=== PATIENT | female | born 1985 | race African-American/Black ===

== ENCOUNTER → 2016-10-17 | Outpatient (CLI) | payer OTHER ==
[2016-10-17 18:45] LABS: BASO # 0.2 K/mm3 (0.0-0.2); BASO % 2.7 % (0.0-1.0); EOS % 0.6 % (0.0-3.0); LARGE UNSTAINED CELL # 0.1 K/mm3 (0.0-0.4); LARGE UNSTAINED CELL % 1.5 % (0.0-4.0); LYMPH # 2.1 K/mm3 (1.5-6.5); LYMPH % 29.6 % (24.0-44.0); MEAN CORPUSCULAR HEMOGLOBIN 27.8 pg (27.0-33.0); MEAN CORPUSCULAR HGB CONC 35.5 g/dl (32.0-36.5); MEAN CORPUSCULAR VOLUME 78.2 fl (80.0-96.0); MONO # 0.3 K/mm3 (0.0-0.8); MONO % 4.3 % (0.0-5.0); NEUTROPHILS # 4.1 K/mm3 (1.8-7.7); NEUTROPHILS % 61.2 % (36.0-66.0); PLATELET COUNT, AUTOMATED 268 k/mm3 (150-450); RED CELL DISTRIBUTION WIDTH 15.5 % (11.5-14.5); WHITE BLOOD COUNT 6.6 K/mm3 (4.0-10.0)
[2016-10-18 09:22] LABS: HIV SCRN NEGATIVE (NEGATIVE); HIV SCRN1 NEGATIVE (NEGATIVE)
[2016-10-18 09:29] LABS: CONTROL LINE INT CTR LINE PRESENT
[2016-10-18 09:56] LABS: HBsAg Prenatal NEGATIVE (NEGATIVE)
== END | disposition home or self-care (01) ==
LOC: M WUC 15:01
PROVIDERS: ATTEND Advanced Practice Midwife
DX: Z34.01 Encounter for supervision of normal first pregnancy, first trimester (principal); Z36 Encounter for antenatal screening of mother; Z3A.00 Weeks of gestation of pregnancy not specified

== ENCOUNTER → 2016-11-10 | Outpatient (CLI) | payer OTHER ==
[2016-11-10 20:06] LABS: BASO % 0.3 % (0.0-1.0); EOS # 0.1 K/mm3 (0.0-0.50); EOS % 1.1 % (0.0-3.0); LARGE UNSTAINED CELL % 0.5 % (0.0-4.0); LYMPH # 1.5 K/mm3 (1.5-6.5); LYMPH % 23.5 % (24.0-44.0); MEAN CORPUSCULAR HGB CONC 35.4 g/dl (32.0-36.5); MEAN CORPUSCULAR VOLUME 79.1 fl (80.0-96.0); MONO # 0.3 K/mm3 (0.0-0.8); MONO % 5.1 % (0.0-5.0); NEUTROPHILS # 4.4 K/mm3 (1.8-7.7); NEUTROPHILS % 69.5 % (36.0-66.0); PLATELET COUNT, AUTOMATED 263 k/mm3 (150-450); RED CELL DISTRIBUTION WIDTH 15.3 % (11.5-14.5); WHITE BLOOD COUNT 6.3 K/mm3 (4.0-10.0)
== END ==
LOC: M WUC 14:08
PROVIDERS: ATTEND Obstetrics & Gynecology
DX: Z34.02 Encounter for supervision of normal first pregnancy, second trimester (principal); Z36 Encounter for antenatal screening of mother; Z3A.00 Weeks of gestation of pregnancy not specified

== ENCOUNTER → 2016-12-12 | Outpatient (CLI) | payer OTHER ==
--- NOTE | 2016-12-12 15:35 | REP ---
Clinical: Anatomical evaluation. Comparison: 09/13/2016 . Findings: Examination demonstrates a single live intrauterine in breech presentation. motion is identified by technologist. Placenta is noted posteriorly and grade zero without evidence for placenta previa or abruption. Amniotic fluid volume is normal. Cervix measures 3.6 cm in length and appears closed. No evidence for nuchal cord. Gestational age by LMP 20 weeks 5 days with MANUEL 04/26/2017 . Gestational age by current measurements 19 weeks 5 days with MANUEL 05/03/2017 . FHR equals 153 beats per minute. BPD 4.4 cm 19 weeks 2 days HC 16.7 cm 19 weeks 2 days AC 15.6 cm 20 weeks 5 days FL 3.3 cm 20 weeks 3 days HL 3.0 cm 20 weeks 0 days HC/AC ratio 1.07 Estimated weight 354 grams ( 38th percentile). Anatomical assessment demonstrates normal structures including cranium, choroid plexus, cavum, cerebellum/posterior fossa, facial features, lungs, four-chamber heart/ left ventricular outflow tract, diaphragm, stomach, cord insertion/three-vessel cord, kidneys/bladder, spine, and extremities. Impression: 1. Single live intrauterine in breech presentation demonstrating appropriate oval growth. 2. Right cardiac ventricular outflow tract not visualized. Remainder of the anatomical assessment is complete and normal. Signed by Dale Griggs MD 12/12/2016 03:25 P
== END ==
LOC: M SMT 13:52
PROVIDERS: ATTEND Obstetrics & Gynecology
DX: O32.1XX0 Maternal care for breech presentation, not applicable or unspecified (principal); Z36 Encounter for antenatal screening of mother; Z3A.20 20 weeks gestation of pregnancy

== ENCOUNTER → 2017-01-02 | Outpatient (CLI) | payer OTHER ==
--- NOTE | 2017-01-02 10:51 | REP ---
OB ULTRASOUND: Real-time sonographic evaluation of the gravid uterus performed. There is a single intrauterine gestation with an estimated gestational age 23 weeks 5 days with EDC 04/26/2017. Today's measurements indicate appropriate growth. Biometry and Growth: BPD 56 mm = 23 weeks 0 days, 30th percentile HC 213 mm = 23 weeks 2 days, 38th percentile AC 177 mm = 22 weeks 4 days, 27th percentile FL 40 mm = 22 weeks 6 days, 28th percentile HC/AC ratio 1.20 within normal range. Estimated weight 534 grams 19th percentile. SEEN/GROSSLY UNREMARKABLE Lateral ventricles Yes Posterior fossa Yes Upper lip Yes Four-chamber heart No LVOT Yes RVOT Yes Stomach Yes Cord insertion Yes Three vessel cord Yes Kidneys Yes Bladder Yes Spine Yes Cervical length: Closed and measures 3.0 cm in length. heart rate: 145 beats per minute. position: Vertex. Placenta: Posterior and grade 0 with no previa or abruption. Amniotic fluid: Within normal limits. Signed by Anthony Rao MD 01/02/2017 04:22 P
== END ==
LOC: M RAD 09:11
PROVIDERS: ATTEND Obstetrics & Gynecology
DX: Z34.82 Encounter for supervision of other normal pregnancy, second trimester (principal); Z36 Encounter for antenatal screening of mother; Z3A.23 23 weeks gestation of pregnancy

== ENCOUNTER → 2017-01-24 | Outpatient (CLI) | payer OTHER ==
[2017-01-24 17:07] LABS: MEAN CORPUSCULAR HEMOGLOBIN 30.1 pg (27.0-33.0); MEAN CORPUSCULAR HGB CONC 35.1 g/dl (32.0-36.5); RED CELL DISTRIBUTION WIDTH 14.7 % (11.5-14.5); WHITE BLOOD COUNT 8.9 K/mm3 (4.0-10.0)
== END ==
LOC: M WUC 13:02
PROVIDERS: ATTEND Obstetrics & Gynecology
DX: Z34.82 Encounter for supervision of other normal pregnancy, second trimester (principal); Z36 Encounter for antenatal screening of mother; Z3A.00 Weeks of gestation of pregnancy not specified

== ENCOUNTER 2017-02-11 11:22 | Outpatient (CLI) | payer OTHER ==
[~2017-02-11] VITALS: Ht 165.1 cm; Wt 66.0 kg
[2017-02-11] MEDS ORDERED: PRENTAB9 PO (11:38)
[2017-02-11] MEDS ORDERED: IRON65TA PO (11:38)
[2017-02-11 11:40] VITALS: BP 110/74
== END 2017-02-11 12:35 | disposition home or self-care (01) ==
LOC: M LDO 11:22
PROVIDERS: ATTEND Advanced Practice Midwife
DX: O99.89 Other specified diseases and conditions complicating pregnancy, childbirth and the puerperium (principal); R10.2 Pelvic and perineal pain; Z3A.29 29 weeks gestation of pregnancy

== ENCOUNTER → 2017-04-09 | Outpatient (REF) | payer OTHER ==
[~2017-04-09] MED LIST: ACET50TA PO; ACET50TAOT PO; COLA100C5 PO; IBUP-1114 PO; IBUP1TAB7 PO; IBUP80TA PO; IRON65TA PO; MOM30SS PO; NUPE1OIN2 TOP; OXYC1TAB23 PO; PERC10TA26 PO; PERCOCET PO; PRENTAB9 PO
== END ==
LOC: M LAB REF 17:33
PROVIDERS: ATTEND Advanced Practice Midwife
DX: Z34.03 Encounter for supervision of normal first pregnancy, third trimester (principal); Z36 Encounter for antenatal screening of mother; Z3A.00 Weeks of gestation of pregnancy not specified

== ENCOUNTER 2017-04-30 05:21 | Outpatient (CLI) | payer OTHER ==
[~2017-04-30] VITALS: Ht 170.2 cm; Wt 71.0 kg
[~2017-04-30 05:21] MED LIST changes: -ACET50TA PO; -ACET50TAOT PO; -COLA100C5 PO; -IBUP-1114 PO; -IBUP1TAB7 PO; -IBUP80TA PO; -MOM30SS PO; -NUPE1OIN2 TOP; -OXYC1TAB23 PO; -PERC10TA26 PO; -PERCOCET PO
[2017-04-30 05:30] VITALS: BP 111/78
[2017-04-30] MEDS ORDERED: LR 1,000 ML IV ONE (06:45)
[2017-04-30 07:26] VITALS: BP 126/82
[2017-04-30 09:37] VITALS: BP 105/69
[2017-04-30 10:42] VITALS: BP 126/80
== END 2017-04-30 10:55 | disposition home or self-care (01) ==
LOC: M LDO 05:21
PROVIDERS: ATTEND Obstetrics & Gynecology
DX: O47.1 False labor at or after 37 completed weeks of gestation (principal); N89.8 Other specified noninflammatory disorders of vagina; Z3A.38 38 weeks gestation of pregnancy; O26.893 Other specified pregnancy related conditions, third trimester

== ENCOUNTER 2017-05-02 05:28 | Inpatient (IN) | payer OTHER ==
[2017-05-02] VITALS (55 sets, daily range): BP systolic 89–130; BP diastolic 50–85
[~2017-05-02] VITALS: Ht 154.9 cm; Wt 75.0 kg
[2017-05-02 06:22] LABS: MEAN CORPUSCULAR HEMOGLOBIN 31.3 pg (27.0-33.0); MEAN CORPUSCULAR VOLUME 84.8 fl (80.0-96.0); RED CELL DISTRIBUTION WIDTH 14.3 % (11.5-14.5); WHITE BLOOD COUNT 8.6 K/mm3 (4.0-10.0)
[2017-05-02] MEDS ORDERED: FENTANYL 2MCG/ML ROPIVACAINE 0.2% IN 0.9% NACL 200ML IVBAG As Ordered ONE (06:22)
[2017-05-02 06:24] LABS: MEAN CORPUSCULAR HGB CONC 36.2 g/dl (32.0-36.5)
[2017-05-02] MEDS ORDERED: REFRIGERATOR IV KEYS XX PRN (07:15)
[2017-05-02] MEDS ORDERED: LACTATED RINGER'S 1000 ML IV PRN (07:15)
[2017-05-02] MEDS ORDERED: EPIDURAL/PCA KEYS XX PRN (07:15)
[2017-05-02] MEDS ORDERED: ONDANSETRON 4MG/2ML VIAL (J2405) IV PRN ×2 (07:15→19:45)
[2017-05-02] MEDS ORDERED: diphenhydrAMINE INJ 50MG/ML VIAL (J1200) IV PRN (07:15)
[2017-05-02] MEDS ORDERED: FENTANYL/ROPIVACAINE/NACL BAG 200 ML EPIDURAL SCH (07:15)
[2017-05-02] MEDS ORDERED: EPIDURAL COMMENT XX SCH (07:15)
[2017-05-02] MEDS ORDERED: NALOXONE INJ 0.4 MG/1 ML VIAL (J2310) IV PRN (07:15)
[2017-05-02] MEDS: ePHEDrine SULFATE 25 MG/5 ML(5MG/ML) SYRINGE IV PRN ×3 (08:10→08:19)
[2017-05-02] MEDS ORDERED: OXYTOCIN 30 UNITS IN 0.9% NaCl 500ML IV BAG (J2590) As Ordered ONE (09:57)
[2017-05-02] MEDS ORDERED: LR 1,000 ML IV SCH ×2 (09:57→19:45)
[2017-05-02] MEDS ORDERED: OXYTOCIN DRIP 30 UNITS in APPROPRIATE DILUENT 1 EA IV SCH ×3 (10:48→14:00)
[2017-05-02] MEDS ORDERED: DIBUCAINE 1% OINTMENT 30GM TOP PRN (11:00)
[2017-05-02] MEDS ORDERED: MOM 30ML SUSPENSION UDC PO PRN (11:00)
[2017-05-02] MEDS ORDERED: RHOGAM 300 MCG (1500 IU) INJ (J2790) IM SCH (11:00)
[2017-05-02] MEDS ORDERED: METHYLERGONOVINE MALEATE 0.2 MG TAB PO PRN (11:00)
[2017-05-02] MEDS ORDERED: DOCUSATE SODIUM 100 MG CAP PO PRN (11:00)
[2017-05-02] MEDS ORDERED: ACETAMINOPHEN 500 MG TAB PO PRN (11:00)
[2017-05-02] MEDS ORDERED: MEASLES,MUMPS,RUBELLA VACCINE INJ (MMR-II) (90707) SC SCH (11:00)
[2017-05-02] MEDS ORDERED: ANUSOL HC CREAM 30GM TOP PRN (11:00)
[2017-05-02] MEDS ORDERED: METHYLERGONOVINE MALEATE 0.2 MG/ML VIAL (J2210) IM STA (12:34)
[2017-05-02] MEDS ORDERED: miSOPROStol 200 MCG TAB (S0191) PR ONE (13:00)
[2017-05-02] MEDS ORDERED: KETOROLAC 30 MG/ML VIAL (J1885) As Ordered ONE (13:37)
[2017-05-02] MEDS: KETOROLAC 30 MG/ML VIAL (J1885) IV SCH (13:57)
[2017-05-02] MEDS ORDERED: METHYLERGONOVINE MALEATE 0.2 MG TAB PO SCH (14:00)
[2017-05-02] MEDS ORDERED: PERCOCET 5MG/325MG TAB PO ONE (14:15)
--- NOTE | 2017-05-02 14:25 | DN ---
DATE OF DELIVERY: 05/02/2017 TIME OF DELIVERY: 10:30 a.m. GENDER: Female. SCORES: 9 and 9. WEIGHT: 3105 grams, or 6 pounds 13 ounces. ESTIMATED BLOOD LOSS: 300 mL. ANESTHESIA: Epidural. LACERATIONS: First degree midline laceration. COUNTS: 5 laparotomy sponges accounted for prior to and after delivery. One sharp removed from the delivery field. DELIVERY NOTE: On the April at 10:30 a.m., this patient a 32-year-old 1 now para 1 had a spontaneous vaginal delivery of a liveborn female infant with scores of 9 and 9. Weight was 3105 grams or 6 pounds 13 ounces. Head was delivered OA followed by delivery of right anterior shoulder, left posterior shoulder and corpus. The was then handed to mom with a good cry. The cord was clamped times two and was cut by the father of the baby under my direction. Cord blood was obtained. Placenta was then drained and delivered grossly intact. A premixed bag of 500 mL of normal saline with 30 units of pitocin was then bolused along with uterine massage until the uterus was firm. On inspection there was a first degree midline laceration, which was repaired with #3-0 Vicryl Rapide. On reinspection of the cervix, vagina and perineum was grossly intact and hemostatic. Mom and baby were recovering in stable condition.
[2017-05-02 14:29] LABS: MEAN CORPUSCULAR HEMOGLOBIN 31.1 pg (27.0-33.0); MEAN CORPUSCULAR VOLUME 84.4 fl (80.0-96.0); RED CELL DISTRIBUTION WIDTH 14.1 % (11.5-14.5); WHITE BLOOD COUNT 13.4 K/mm3 (4.0-10.0)
[2017-05-02] MEDS ORDERED: MORPHINE 2 MG/ML 1ML SYRINGE IV ONE (14:30)
--- NOTE | 2017-05-02 14:30 | HPE ---
DATE OF ADMISSION: 05/02/2017 REASON FOR ADMISSION: Labor. HISTORY OF PRESENT ILLNESS: This patient is a 32-year-old 1, who presents at 39 weeks 6 days estimated gestational age via first trimester ultrasound with complaints of contractions. She reports active movement. She denies any vaginal bleeding or leakage of fluid. Her course has been unremarkable. She initiated care in the first trimester and has been appropriate throughout. PAST MEDICAL HISTORY: None. PAST SURGICAL HISTORY: None. PAST OBSTETRICAL HISTORY: She is 1. MEDICATIONS: - iron - Colace - vitamins ALLERGIES: She has no known drug allergies. SOCIAL HISTORY: She denies any alcohol, tobacco or drug use during the . PHYSICAL EXAMINATION: VITAL SIGNS: Stable. She is afebrile. She has a category 1 heart rate tracing with contractions on tocodynamometer. GENERAL APPEARANCE: Well appearing. No acute distress. LUNGS: Clear to auscultation bilaterally. CARDIOVASCULAR: Heart has regular rate and rhythm. ABDOMEN: Gravid, nontender. CERVICAL EXAM: She is 8 cm dilated, 90% effaced, -1 station. LABORATORY DATA: Blood type is AB positive, antibody screen is negative, Rubella is immune, RPR is nonreactive, hepatitis surface antigen is negative. HIV is negative. Hepatitis C nonreactive. Chlamydia and Gonorrhea negative. She had a normal one hour Glucola and GBS is negative. ASSESSMENT: 1. This patient is a 32-year-old 1 at 39 weeks 6 days estimated gestational age here in active labor. 2. Reassuring status. PLAN: 1. Admit to labor and delivery. CBC, RPR, type and screen. 2. The patient is a good candidate fro epidural. 3. Anticipate spontaneous vaginal delivery.
[2017-05-02 14:31] LABS: MEAN CORPUSCULAR HGB CONC 36.8 g/dl (32.0-36.5)
[2017-05-02] MEDS ORDERED: MORPHINE 10 MG/ML 1ML VIAL IV ONE (17:00)
[2017-05-02 17:30] LABS: MEAN CORPUSCULAR HEMOGLOBIN 31.8 pg (27.0-33.0); MEAN CORPUSCULAR VOLUME 85.1 fl (80.0-96.0); RED CELL DISTRIBUTION WIDTH 13.9 % (11.5-14.5); WHITE BLOOD COUNT 13.7 K/mm3 (4.0-10.0)
[2017-05-02 17:43] LABS: MEAN CORPUSCULAR HGB CONC 37.4 g/dl (32.0-36.5)
[2017-05-02] MEDS ORDERED: SUCCINYLCHOLINE 100 MG/5 ML SYRINGE (J0330) As Ordered ONE (17:50)
[2017-05-02] MEDS ORDERED: PROPOFOL 200 MG/20 ML VIAL As Ordered ONE (17:50)
[2017-05-02] MEDS ORDERED: ONDANSETRON 4MG/2ML VIAL (J2405) As Ordered ONE ×2 (17:50→19:01)
[2017-05-02] MEDS ORDERED: ROCURONIUM BROMIDE 50 MG/5 ML VIAL/SYRINGE As Ordered ONE (17:50)
[2017-05-02] MEDS ORDERED: fentaNYL 100 MCG/2 ML INJECTION (J3010) As Ordered ONE ×2 (17:50→18:49)
[2017-05-02] MEDS ORDERED: ceFAZolin 2 GM/D5W 50 ML IV BAG (J0690) As Ordered ONE (17:52)
--- NOTE | 2017-05-02 18:05 | REP ---
HISTORY: Status post vaginal delivery. The patient has severe pain. COMPARISON: None. There is mixed echogenic material seen in the pelvis consistent with heme products. The uterus is enlarged secondary to the state measuring 23 x 7 x 10 cm. There is thickening and heterogeneity of the endometrial echo complex likely secondary to the state. This needs followup. Only the right ovary was visualized and was seen to measure 3.7 x 2.6 x 2.5 cm and was within normal limits. IMPRESSION: 1. Uterine enlargement consistent with a state. 2. Endometrial echo complex as described above. 3. There is evidence of heme products within the pelvis. This needs to be correlated clinically with appropriate followup. Signed by Eliseo Foote DO 05/02/2017 06:58 P
[2017-05-02] MEDS ORDERED: MIDAZOLAM INJ 2 MG/2 ML VIAL (J2250) As Ordered ONE (18:09)
--- NOTE | 2017-05-02 18:19 | REP ---
REASON FOR EXAM: Right upper quadrant pain. COMPARISON EXAM: None. Multiple ultrasonographic images of the liver show the hepatic parenchymal echo pattern to be normal. There is no intrahepatic or extrahepatic ductal dilatation. The common bile duct measures 3 mm. Multiple ultrasonographic images of the gallbladder show tiny echogenic foci adherent to the gallbladder wall. The largest of which measures 2 mm non-casting comet tail artifact or acoustic shadowing. There are no choleliths. There is no pericholecystic edema. The imaged portion of the pancreas shows no evidence of gross abnormality. The spleen has a maximal dimension of 9 cm and is normal. The right kidney measures 10.2 x 4.4 x 3.6 cm and is normal. The left kidney measures 9.7 x 4.4 x 5 cm and is normal. There is no edna ascites. There is a trace amount of free fluid adjacent to the spleen. IMPRESSION: 1. Tiny gallbladder polyps are suspected. Three month followup is suggested. 2. There is a tiny amount of fluid in the left upper quadrant of uncertain significance. This should be correlated clinically with appropriate followup. Signed by Eliseo Foote DO 05/02/2017 06:59 P
[2017-05-02] MEDS ORDERED: ePHEDrine SULFATE 25 MG/5 ML(5MG/ML) SYRINGE As Ordered ONE (18:59)
[2017-05-02] MEDS ORDERED: PHENYLEPHRINE INJ 10MG/ML VIAL (J2370) As Ordered ONE (18:59)
[2017-05-02] MEDS ORDERED: GLYCOPYRROLATE INJ 0.2 MG/ML 2 ML VIAL As Ordered ONE (19:01)
[2017-05-02] MEDS ORDERED: NEOSTIGMINE 1MG/ML 5 ML SYRINGE (J2710) As Ordered ONE (19:01)
[2017-05-02] MEDS ORDERED: PERCOCET 5MG/325MG TAB PO PRN ×2 (19:30→19:45)
[2017-05-02] MEDS ORDERED: fentaNYL 100 MCG/2 ML INJECTION (J3010) IV PRN (19:45)
[2017-05-02] MEDS ORDERED: HYDROmorphone HCL 1 MG/ML SYRINGE (J1170) IV PRN (19:45)
[2017-05-02] MEDS: AMPICILLIN SOD/SULBACTAM SOD 3 GM in D5W MINI-BAG PLUS 100 ML IV SCH (20:34)
[2017-05-02 22:09] LABS: MEAN CORPUSCULAR HEMOGLOBIN 30.7 pg (27.0-33.0); MEAN CORPUSCULAR HGB CONC 36.2 g/dl (32.0-36.5); MEAN CORPUSCULAR VOLUME 84.8 fl (80.0-96.0); RED CELL DISTRIBUTION WIDTH 13.8 % (11.5-14.5); WHITE BLOOD COUNT 14.9 K/mm3 (4.0-10.0)
[2017-05-03] MEDS: KETOROLAC 30 MG/ML VIAL (J1885) IV SCH (01:26)
[2017-05-03 02:35] VITALS: BP 101/57
[2017-05-03] MEDS: AMPICILLIN SOD/SULBACTAM SOD 3 GM in D5W MINI-BAG PLUS 100 ML IV SCH (02:58)
[2017-05-03] MEDS: LR 1,000 ML IV SCH ×4 (02:58→19:29)
[2017-05-03] MEDS: PERCOCET 5MG/325MG TAB PO PRN (05:39)
[2017-05-03 05:53] VITALS: BP 99/59
[2017-05-03 07:03] LABS: MEAN CORPUSCULAR HEMOGLOBIN 30.9 pg (27.0-33.0); MEAN CORPUSCULAR HGB CONC 36.5 g/dl (32.0-36.5); MEAN CORPUSCULAR VOLUME 84.7 fl (80.0-96.0); RED CELL DISTRIBUTION WIDTH 13.9 % (11.5-14.5); WHITE BLOOD COUNT 9.1 K/mm3 (4.0-10.0)
[2017-05-03] MEDS: PRENATAL VITAMINS CHEWABLE TABLET PO SCH (08:24)
[2017-05-03 10:08] VITALS: BP 111/63
--- NOTE | 2017-05-03 12:34 | RO ---
DATE OF PROCEDURE: 05/02/2017 PREPROCEDURE DIAGNOSIS: Right vaginal wall hematoma. POSTPROCEDURE DIAGNOSIS: Right vaginal wall hematoma. PROCEDURE PERFORMED: Evacuation of a right vaginal wall hematoma. SURGEON: Lona Browne MD TECHNICAL DIRECTOR: Chapo Kathleen MD ANESTHESIA: General endotracheal anesthesia. ESTIMATED BLOOD LOSS: Was approximately 1 liter of clotted blood was evacuated from the vaginal wall hematoma. FLUIDS: The patient received 2 units of packed red blood cells and 1200 mL of lactated Ringer solution. SPECIMENS: None. PREOPERATIVE ANTIBIOTICS: 2 grams of Ancef. INDICATION FOR OPERATION: Mrs. James is a 32-year-old 1, para 1, who had delivered earlier that day at approximately 10:30 a.m. This delivery was uncomplicated. She sustained a 1st-degree laceration and initially did well . Her course was remarkable for a large amount of bleeding approximately 2 hours after delivery. The patient was given initially uterine tonics for treatment of uterine atony. Her bleeding ceased, and she remained stable. Complete blood count (CBC) was obtained, which showed a hematocrit of 31, previously 35. Her vital signs during this time remained stable. She had remained afebrile. Approximately 3 hours after delivery, she started to report pelvic pain. Initially, this pain was believed to be secondary to uterine contractions in light of the amount of uterine tonic she received for uterine atony. This pain continued to progress. She described this pelvic pain flanking and eventually started to complain of rectal discomfort. On examination, she was noted to have a large right-side hematoma, approximately 6-7 cm in size. The patient was consented for evacuation of the right wall hematoma. DESCRIPTION OF OPERATION: After informed consent was obtained and written consent was reviewed, the patient was brought to the operating room, where general endotracheal anesthesia was obtained. She was then prepped and draped in the normal sterile fashion. A time-out out in the operating room was then performed identifying the patient, the procedure to be performed, as well as drug allergies. A Breisky retractor was then placed in the vagina, revealing the vaginal hematoma. This area was then opened, and drainage of approximately 1 liter clot was then removed from paravaginal space. The opening was then oversewn with 0 Vicryl repair. The 1st-degree laceration was also repaired. The vagina was then packed using a vaginal packing. The patient was then taken out of the lithotomy position, was awakened from general anesthesia, and taken to recovery in stable condition. Counts were correct. MTDD
[2017-05-03 14:15] VITALS: BP 100/62
[2017-05-03 18:25] VITALS: BP 117/51
[2017-05-03 22:07] VITALS: BP 107/62
[2017-05-04] MEDS: LR 1,000 ML IV SCH ×5 (03:29→21:00)
[2017-05-04] MEDS: IBUPROFEN 800 MG TAB PO PRN ×2 (03:43→12:49)
[2017-05-04 06:03] VITALS: BP 106/59
[2017-05-04] MEDS: PRENATAL VITAMINS CHEWABLE TABLET PO SCH ×2 (09:00→09:28)
[2017-05-04] MEDS ORDERED: MOM30SS PO (10:16)
[2017-05-04] MEDS ORDERED: ACET50TA PO (10:16)
[2017-05-04] MEDS ORDERED: IBUP-1114 PO (10:16)
[2017-05-04] MEDS ORDERED: OXYC1TAB23 PO (10:16)
[2017-05-04] MEDS ORDERED: NUPE1OIN2 TOP (10:16)
[2017-05-04] MEDS ORDERED: COLA100C5 PO (10:16)
[2017-05-04 12:55] VITALS: BP 111/71
[2017-05-04] MEDS ORDERED: LACTATED RINGER'S 1000 ML IV ONE (13:00)
[2017-05-04 14:15] LABS: BASO % 0.2 % (0.0-1.0); EOS # 0.1 K/mm3 (0.0-0.50); EOS % 0.6 % (0.0-3.0); LARGE UNSTAINED CELL # 0.1 K/mm3 (0.0-0.4); LARGE UNSTAINED CELL % 0.6 % (0.0-4.0); LYMPH # 1.8 K/mm3 (1.5-4.5); LYMPH % 14.6 % (24.0-44.0); MEAN CORPUSCULAR HEMOGLOBIN 30.7 pg (27.0-33.0); MEAN CORPUSCULAR HGB CONC 35.4 g/dl (32.0-36.5); MEAN CORPUSCULAR VOLUME 86.7 fl (80.0-96.0); MONO # 0.4 K/mm3 (0.0-0.8); MONO % 3.5 % (0.0-5.0); NEUTROPHILS # 9.3 K/mm3 (1.8-7.7); NEUTROPHILS % 80.6 % (36.0-66.0); PLATELET COUNT, AUTOMATED 182 k/mm3 (150-450); RED CELL DISTRIBUTION WIDTH 14.3 % (11.5-14.5); WHITE BLOOD COUNT 11.6 K/mm3 (4.0-10.0)
[2017-05-04] MEDS: PERCOCET 5MG/325MG TAB PO PRN (16:01)
[2017-05-04 17:58] VITALS: BP 122/60
[2017-05-05 02:20] VITALS: BP 110/67
[2017-05-05 04:01] LABS: MEAN CORPUSCULAR HGB CONC 34.7 g/dl (32.0-36.5); MEAN CORPUSCULAR VOLUME 86.6 fl (80.0-96.0); RED CELL DISTRIBUTION WIDTH 14.5 % (11.5-14.5); WHITE BLOOD COUNT 10.4 K/mm3 (4.0-10.0)
[2017-05-05 06:00] VITALS: BP 120/79
[2017-05-05] MEDS: PRENATAL VITAMINS CHEWABLE TABLET PO SCH (08:41)
[2017-05-05] MEDS: PERCOCET 5MG/325MG TAB PO PRN (08:44)
[2017-05-05] MEDS ORDERED: IBUP1TAB7 PO (13:28)
[2017-05-05] MEDS ORDERED: PERCOCET PO (13:30)
--- NOTE | 2017-05-09 11:51 | DSES ---
DATE OF ADMISSION: 05/02/2017 DATE OF DISCHARGE: 05/05/2017 DISCHARGE DIAGNOSES: 1. Spontaneous vaginal delivery. 2. Vaginal wall hematoma. 3. hemorrhage. PROCEDURES PERFORMED WHILE IN THE HOSPITAL: 1. Epidural. 2. Repair of vaginal laceration. 3. Evacuation of vaginal wall hematoma. 4. She received a total of 4 units of red packed blood cells. HISTORY AND HOSPITAL COURSE: Ms. James is a 32-year-old 1, who presented in active labor. She had a vaginal delivery that was productive of a liveborn female infant. She had sustained a 1st-degree laceration, which was repaired. Several hours after her vaginal delivery, she had a large amount of blood, and it was initially treated with uterine tonics for uterine atony. Her bleeding had remained stable, and then she started to report severe pain; and on her examination, it was noted that she had a large right-side vaginal hematoma. She underwent a surgical evacuation of the hematoma, as well as receiving a total of 4 units of packed red blood cells. She did well postoperatively. By postoperative day #3, had met all discharge criteria, so was discharged home in stable condition. Her physical examination on day of discharge, her vital signs were stable. She was afebrile. Her abdomen was soft, nontender. The fundus was firm, below umbilicus. Extremities negative for calf tenderness. Her discharge medication: - ibuprofen - Percocet DISCHARGE INSTRUCTIONS: She was instructed to followup in 2 weeks. To report severe pain, heavy vaginal bleeding, or fever. To remain on pelvic rest. GREY
== END 2017-05-05 15:45 | disposition home or self-care (01) | DRG 774 ==
LOC: M LDO 05:28 → M LDI 05:34 → M OBS 19:17
PROVIDERS: ADMIT Obstetrics & Gynecology; ATTEND Obstetrics & Gynecology
PROC: 0HQ9XZZ Repair Perineum Skin, External Approach (ICD-10-PCS; 2017-05-02)
PROC: 30253N1 (ICD-10-PCS; 2017-05-02)
PROC: 0UCG7ZZ Extirpation of Matter from Vagina, Via Natural or Artificial Opening (ICD-10-PCS; 2017-05-02)
PROC: 10E0XZZ Delivery of Products of Conception, External Approach (ICD-10-PCS; principal; 2017-05-02 17:14)
DX: O70.0 First degree perineal laceration during delivery (principal); O72.1 Other immediate postpartum hemorrhage; O71.7 Obstetric hematoma of pelvis; Z37.0 Single live birth; Z3A.39 39 weeks gestation of pregnancy

== ENCOUNTER 2017-05-18 05:59 | Inpatient (IN) | payer OTHER ==
[~2017-05-18] VITALS: Ht 170.2 cm; Wt 67.5 kg
[2017-05-18] MEDS: LR 1,000 ML IV SCH ×2 (01:00→17:17)
[~2017-05-18 05:59] MED LIST changes: +ACET50TA PO; +COLA100C5 PO; +IBUP-1114 PO; +IBUP1TAB7 PO; +MOM30SS PO; +NUPE1OIN2 TOP; +OXYC1TAB23 PO; +PERCOCET PO
[2017-05-18] MEDS ORDERED: NS 1,000 ML IV ONE ×2 (06:45→14:30)
[2017-05-18] MEDS ORDERED: ACETAMINOPHEN TAB 650MG DOSE (2X325MG) PO ONE ×2 (06:45→12:30)
[2017-05-18 07:05] LABS: BASO % 0.1 % (0.0-1.0); EOS % 0.3 % (0.0-3.0); LARGE UNSTAINED CELL # 0.1 K/mm3 (0.0-0.4); LARGE UNSTAINED CELL % 0.6 % (0.0-4.0); LYMPH # 0.5 K/mm3 (1.5-4.5); MEAN CORPUSCULAR HEMOGLOBIN 29.6 pg (27.0-33.0); MEAN CORPUSCULAR HGB CONC 35.1 g/dl (32.0-36.5); MEAN CORPUSCULAR VOLUME 84.4 fl (80.0-96.0); MONO # 0.3 K/mm3 (0.0-0.8); NEUTROPHILS # 8.5 K/mm3 (1.8-7.7); PLATELET COUNT, AUTOMATED 304 k/mm3 (150-450); RED CELL DISTRIBUTION WIDTH 14.4 % (11.5-14.5); WHITE BLOOD COUNT 9.4 K/mm3 (4.0-10.0)
[2017-05-18 07:19] LABS: ALBUMIN 2.8 GM/DL (3.2-5.2); ALBUMIN/GLOBULIN RATIO 0.76 (1.00-1.93); ALKALINE PHOSPHATASE 90 U/L (45-117); ALT/SGPT 21 U/L (12-78); ANION GAP 9 MEQ/L (8-16); AST/SGOT 17 U/L (15-37); BILIRUBIN,DIRECT 0.2 MG/DL (0.0-0.2); BILIRUBIN,TOTAL 0.6 MG/DL (0.2-1.0); BLOOD UREA NITROGEN 15 MG/DL (7-18); CALCIUM LEVEL 8.1 MG/DL (8.5-10.1); CARBON DIOXIDE LEVEL 24 MEQ/L (21-32); CHLORIDE LEVEL 111 MEQ/L (98-107); CREATININE FOR GFR 0.82 MG/DL (0.55-1.02); GLOMERULAR FILTRATION RATE > 60.0 (>60); GLUCOSE, FASTING 87 MG/DL (70-105); POTASSIUM SERUM 3.9 MEQ/L (3.5-5.1); SODIUM LEVEL 144 MEQ/L (136-145); TOTAL PROTEIN 6.5 GM/DL (6.4-8.2)
[2017-05-18] MEDS ORDERED: ISOVUE-370 76% 100ML VIAL (Q9967) As Ordered ONE (08:37)
[2017-05-18] MEDS ORDERED: MORPHINE 4 MG/ML 1ML SYRINGE IV ONE (10:45)
--- NOTE | 2017-05-18 10:51 | REP ---
Chest x-ray: Two views. History: Fever . Comparison study: No comparison . Findings: The lungs are well inflated and free of infiltrate. The pleural angles are sharp. The heart size is normal. Pulmonary vasculature is not increased. No significant bony abnormality is seen. Impression: Negative chest x-ray. Signed by Omar Gardner MD 05/18/2017 07:43 A
--- NOTE | 2017-05-18 10:56 | REP ---
CT ABDOMEN PELVIS WITH IV BUT WITHOUT ORAL CONTRAST: HISTORY: Right lower quadrant and flank pain, [address] CONTRAST DOSE: 100 mL of Isovue [address] FINDINGS: Preliminary microsoft dynamics manager architect radiograph is unremarkable. The lung bases show some mild pleural thickening on the left posteriorly. No pleural effusion is seen. The liver and the spleen are normal in size and homogeneous in texture. Pancreas is unremarkable. No gallbladder abnormality is seen. The kidneys enhance symmetrically and are morphologically intact. Normal aorta is seen. No retroperitoneal mass or adenopathy is seen. The uterus is seen enlarged as expected measuring 13.9 cm in craniocaudal span x 6.2 cm anterior to posterior x 8.6 cm right to left. ovaries are slightly prominent but normal in appearance and symmetric. In the right pararectal region and pelvic floor, there is a subacute hematoma seen measuring 8.9 x 86.4 cm in anteroposterior x transverse dimension. This measures 4.4 cm in craniocaudal span. The hematoma displaces the rectum, cervix and vagina to the left. There is some deformity of the right base of the bladder. No bony abnormality is seen. No abdominal wall defect is observed. IMPRESSION: 1. 8.9 x 6.4 x 4.4 cm right pararectal space hematoma in the pelvic floor displacing the rectum and cervix to the left and deforming the bladder base somewhat. 2. uterine enlargement. 3. Otherwise unremarkable. Signed by Omar Gardner MD 05/18/2017 10:14 A
[2017-05-18] MEDS ORDERED: IBUP80TA PO (11:18)
[2017-05-18] MEDS ORDERED: ACET50TAOT PO (11:18)
[2017-05-18] MEDS ORDERED: PERC10TA26 PO (11:19)
[2017-05-18] MEDS ORDERED: ACETAMINOPHEN TAB 650MG DOSE (2X325MG) As Ordered ONE (12:26)
[2017-05-18] MEDS ORDERED: UNASYN 3 GM VIAL As Ordered ONE (13:45)
[2017-05-18] MEDS ORDERED: AMPICILLIN SOD/SULBACTAM SOD 3 GM in D5W MINI-BAG PLUS 100 ML IV ONE (14:45)
[2017-05-18] MEDS ORDERED: MORPHINE 10 MG/ML 1ML VIAL IV PRN (15:15)
[2017-05-18 16:10] VITALS: BP 120/78
[2017-05-18] MEDS ORDERED: PERCOCET 5MG/325MG TAB PO PRN (16:45)
[2017-05-18] MEDS: PERCOCET 5MG/325MG TAB PO PRN (17:18)
[2017-05-18 20:00] VITALS: BP 104/56
[2017-05-18] MEDS: PIPERACILLIN/TAZOBACTAM SOD 3.375 GM in D5W MINI-BAG PLUS 50 ML IV SCH (20:42)
[2017-05-19] VITALS: BP 133/78
--- NOTE | 2017-05-19 00:34 | HPE ---
DATE OF ADMISSION: 05/18/2017 REASON FOR ADMISSION: Pelvic hematoma and fever. HISTORY OF PRESENT ILLNESS: Mrs. James is a 32-year-old 1, para 1, who is status post a vaginal delivery on 05/02/2017, which was complicated by a large vaginal wall hematoma that was subsequently evacuated and packed. She received a total of 3 units of blood secondary to this large hematoma. She had remained relatively stable 16 days postoperative and postdelivery from this event. She denied any fever or chills until day of presentation. Her pain has been moderately controlled using ibuprofen. On day of presentation, she described flu-like symptoms with fatigue, headache, body aches and chills. She presented to the emergency room where she was found to be febrile with a temperature of 101.8. She underwent a chest x-ray, which was unremarkable. She had a CT scan, which showed 8.9 x 6.4 x 4.4 right pararectal space hematoma. PAST SURGICAL HISTORY: She has had evacuation of a right wall vaginal hematoma on 05/02. PAST OBSTETRICAL HISTORY: She is a 1, para 1, had a spontaneous vaginal delivery also on 05/02/2017. MEDICATIONS: Include ibuprofen. ALLERGIES: No known drug allergies. REVIEW OF SYMPTOMS: Constitutional: She does report chills, fevers, as well as loss of appetite. Respiratory: Denies any cough, sneezing, upper respiratory symptoms. Breasts: She is currently . Denies any pain or swelling or redness in the breasts. Skin: Denies any changes. Gastrointestinal (GI): Denies any diarrhea, nausea, vomiting. PHYSICAL EXAMINATION: VITAL SIGNS: Current temperature is 100.3, pulse is 95, respirations 20, blood pressure 111/95. She is saturating at 97% on room air. GENERAL APPEARANCE: No acute distress. LUNGS: Clear to auscultation bilaterally. CARDIOVASCULAR: Heart regular rate and rhythm. ABDOMEN: Soft, nontender. PELVIC EXAM: Tenderness with the exam, compression on the lateral right vaginal wall, as well as posteriorly. No hematoma appreciated on exam. LABORATORIES: Her CBC, she had a normal white count of 9.4, hemoglobin was 11.8, hematocrit 33.5, platelets 304. IMAGING: She had a CT scan demonstrating an 8.9 x 6.4 x 4.4 right pararectal space hematoma. ASSESSMENT: 1. Mrs. James is a 32-year-old 1, para 1, who is 16 days and is postoperative from a vaginal delivery complicated with a right vaginal wall hematoma, which was evacuated, currently showing an 8.9 x 6.4 x 4 cm residual right pararectal space hematoma. 2. Febrile. PLAN: I have discussed these findings with the couple. I discussed that this hematoma is most likely residual from previous hematoma from her delivery. At this time, it appears to be not approachable by vaginal or abdominal approach for drainage. I discussed that considering this is 16 days post evacuation and clinically appears to be stable, will plan to admit for observation. Pain currently stable, but will continue to manage pain accordingly. Will also place on broad-spectrum antibiotics considering febrile nature of presentation. Will await blood and urine cultures and will tailor antibiotics accordingly.
[2017-05-19] MEDS: PERCOCET 5MG/325MG TAB PO PRN (00:43)
[2017-05-19] MEDS: ACETAMINOPHEN TAB 650MG DOSE (2X325MG) PO PRN ×2 (00:44→20:23)
[2017-05-19] MEDS: LR 1,000 ML IV SCH ×3 (01:00→23:18)
[2017-05-19] MEDS: PIPERACILLIN/TAZOBACTAM SOD 3.375 GM in D5W MINI-BAG PLUS 50 ML IV SCH ×4 (02:00→20:19)
[2017-05-19 04:00] VITALS: BP 106/75
[2017-05-19 06:43] LABS: MEAN CORPUSCULAR HEMOGLOBIN 30.1 pg (27.0-33.0); MEAN CORPUSCULAR HGB CONC 35.4 g/dl (32.0-36.5); RED CELL DISTRIBUTION WIDTH 14.6 % (11.5-14.5); WHITE BLOOD COUNT 6.8 K/mm3 (4.0-10.0)
[2017-05-19 08:00] VITALS: BP 128/91
[2017-05-19 12:00] VITALS: BP 132/78
[2017-05-19 16:00] VITALS: BP 124/68
[2017-05-19 20:00] VITALS: BP 112/80
[2017-05-20] VITALS: BP 109/69
[2017-05-20] MEDS: PIPERACILLIN/TAZOBACTAM SOD 3.375 GM in D5W MINI-BAG PLUS 50 ML IV SCH ×4 (02:20→19:51)
[2017-05-20 04:00] VITALS: BP 126/86
[2017-05-20] MEDS: LR 1,000 ML IV SCH (07:00)
[2017-05-20 08:00] VITALS: BP 130/87
[2017-05-20] MEDS: PERCOCET 5MG/325MG TAB PO PRN (08:52)
[2017-05-20 16:00] VITALS: BP 111/77
[2017-05-20 20:10] VITALS: BP 112/79
[2017-05-21] MEDS: PIPERACILLIN/TAZOBACTAM SOD 3.375 GM in D5W MINI-BAG PLUS 50 ML IV SCH ×2 (02:11→08:00)
[2017-05-21] MEDS: PERCOCET 5MG/325MG TAB PO PRN (02:22)
[2017-05-21 04:00] VITALS: BP 109/75
[2017-05-21] MEDS ORDERED: PERCOCET PO (07:36)
[2017-05-21 08:00] VITALS: BP 104/65
--- NOTE | 2017-06-08 21:00 | DSES ---
DATE OF ADMISSION: 05/20/2017 DATE OF DISCHARGE: 05/21/2017 DISCHARGE DIAGNOSES: 1. Bacteremia. 2. Vaginal hematoma. DISCHARGE CONDITION: Stable. PROCEDURES PERFORMED WHILE IN HOSPITAL: Intravenous antibiotics. DISCHARGE MEDICATIONS: - ibuprofen - Percocet - Augmentin DISCHARGE INSTRUCTIONS: She was instructed to followup in 4 days, remain on pelvic rest, report severe pain, vaginal bleeding or fever. HISTORY AND HOSPITAL COURSE: Mrs. James is a 32-year-old, 1, who presented following a vaginal delivery on 05/02/2017, which was complicated by large vaginal hematoma. This was subsequently evacuated and packed. She was discharged home in stable condition. She presented on the day of admission with complaints of flu-like symptoms with fatigue, headache, body aches and chills. She was found to be febrile with a temperature of 101.8. She also underwent a CT scan showing residual hematoma 3.9 cm in perirectal space. She was admitted and was started on IV antibiotic. She remained afebrile for greater than 48 hours and was discharged home in stable condition. GREY
== END 2017-05-21 11:40 | disposition home or self-care (01) | DRG 776 ==
LOC: M ED 05:59 → M SDC 10:50 → M PED 14:46 → M SDC 05-20 18:38 → M PED 05-20 19:26
PROVIDERS: ADMIT Obstetrics & Gynecology; ATTEND Obstetrics & Gynecology
DX: O90.2 Hematoma of obstetric wound (principal); R78.81 Bacteremia; O98.83 Other maternal infectious and parasitic diseases complicating the puerperium

== ENCOUNTER → 2017-05-24 | Outpatient (CLI) | payer OTHER ==
[~2017-05-24] MED LIST changes: +ACET50TAOT PO; +GASTROGRAFIN SOLUTION 30ML (Q9963) As Ordered ONE; +IBUP80TA PO; +ISOVUE-370 76% 100ML VIAL (Q9967) As Ordered ONE; +NEOSPORIN OINT 0.9 GM PKT (FLOOR STOCK) As Ordered ONE; +PERC10TA26 PO
--- NOTE | 2017-05-25 14:32 | REP ---
Clinical: Pelvic hematoma. Comparison: 05/18/2017. Technique: Axial contrast enhanced images from the lung bases to the pubic symphysis using oral and 100 ml Isovue 370 intravenous contrast material along with precontrast images of the abdomen as well as coronal and sagittal re-formations. Findings: Known hematoma in the posterior perirectal space within the pelvis is slightly decreased in size currently measuring 6.5 x 6.1 x 4.8 centimeters. The bladder, uterus and adnexa appear relatively normal. No significant pelvic free fluid or ascites noted. Liver, spleen, pancreas, gallbladder, bilateral adrenal glands and kidneys are normal. The enteric system is without obstruction or acute inflammatory process. The appendix is not definitively identified. No significant adenopathy. No free air. Abdominal aorta and vasculature appears normal. Musculoskeletal structures are intact Impression: Hematoma in the right pelvis slightly decreased in size from prior examination. No new, acute abdominopelvic pathology appreciated. Signed by Dale Griggs MD 05/24/2017 11:02 P
== END ==
LOC: M RAD 16:09
PROVIDERS: ATTEND Obstetrics & Gynecology
DX: O71.7 Obstetric hematoma of pelvis (principal)
CPT/HCPCS: 74178; Q9963; Q9967

== ENCOUNTER → 2018-02-26 | Outpatient (CLI) | payer OTHER ==
[2018-02-26 19:18] LABS: BASO % 0.3 % (0.0-1.0); EOS % 0.1 % (0.0-3.0); HEMATOCRIT 33.4 % (36.0-47.0); HEMOGLOBIN 12.2 g/dl (12.0-15.5); IMMATURE GRANULOCYTE % 0.3 % (0-3.0); LYMPH # 2.1 10^3/uL (1.5-4.5); LYMPH % 27.8 % (24.0-44.0); MEAN CORPUSCULAR HEMOGLOBIN 27.7 pg (27.0-33.0); MEAN CORPUSCULAR HGB CONC 36.5 g/dl (32.0-36.5); MEAN CORPUSCULAR VOLUME 75.9 fl (80.0-96.0); MONO # 0.3 10^3/uL (0.0-0.8); MONO % 4.4 % (0.0-5.0); NEUTROPHILS % 67.1 % (36.0-66.0); PLATELET COUNT, AUTOMATED 297 10^3/uL (150-450); RED CELL DISTRIBUTION WIDTH 13.6 % (11.5-14.5); WHITE BLOOD COUNT 7.5 10^3/uL (4.0-10.0)
[2018-02-26 22:44] LABS: CHLAMYDIA DNA AMPLIFICATION NEGATIVE (NEGATIVE); GC DNA AMPLIFICATION NEGATIVE (NEGATIVE)
[2018-02-27 08:56] LABS: RUBELLA IgG QUALITATIVE IMMUNE (IMMUNE)
[2018-02-27 09:13] LABS: HBsAg Prenatal NEGATIVE (NEGATIVE)
[2018-02-27 09:29] LABS: HIV 1&2 SCREEN CENTAUR NEGATIVE (NEGATIVE)
== END ==
LOC: M WUC 15:01
DX: Z34.81 Encounter for supervision of other normal pregnancy, first trimester (principal); Z36.89 Encounter for other specified antenatal screening
CPT/HCPCS: 86762

== ENCOUNTER 2018-03-24 18:00 | Emergency (ER) | payer OTHER ==
[2018-03-24] MEDS: NS 1,000 ML IV (19:45)
[2018-03-24] MEDS: ACETAMINOPHEN TAB 650MG DOSE (2X325MG) PO (19:45)
[2018-03-24 20:15] LABS: BASO % 0.3 % (0.0-1.0); EOS # 0.1 10^3/uL (0.0-0.50); EOS % 0.7 % (0.0-3.0); HEMATOCRIT 28.1 % (36.0-47.0); HEMOGLOBIN 10.3 g/dl (12.0-15.5); IMMATURE GRANULOCYTE % 0.3 % (0-3.0); LYMPH # 2.1 10^3/uL (1.5-4.5); MEAN CORPUSCULAR HEMOGLOBIN 28.2 pg (27.0-33.0); MONO # 0.4 10^3/uL (0.0-0.8); MONO % 5.5 % (0.0-5.0); NEUTROPHILS # 4.1 10^3/uL (1.8-7.7); NEUTROPHILS % 61.2 % (36.0-66.0); PLATELET COUNT, AUTOMATED 234 10^3/uL (150-450); RED BLOOD COUNT 3.65 10^6/uL (4.00-5.40); RED CELL DISTRIBUTION WIDTH 13.7 % (11.5-14.5); WHITE BLOOD COUNT 6.7 10^3/uL (4.0-10.0)
[2018-03-24 20:28] LABS: KETONE, URINE AUTO RFX TRACE mg/dL (NEGATIVE); MUCUS, URINE RFX SMALL (NEGATIVE); NITRITE, URINE AUTO RFX NEGATIVE (NEGATIVE); RBC, URINE AUTO RFX 3 /HPF (0-3); SPECIFIC GRAVITY UR AUTO RFX 1.032 (1.002-1.035); SQUAM EPITHELIAL CELL UR AURFX 11 /HPF (0-6); WBC, URINE AUTO RFX 4 /HPF (0-3)
[2018-03-24 20:36] LABS: LEUKOCYTE ESTERASE UR AUTO RFX TRACE (NEGATIVE)
[2018-03-24 20:40] LABS: ALBUMIN 2.9 GM/DL (3.2-5.2); ALBUMIN/GLOBULIN RATIO 0.83 (1.00-1.93); ALKALINE PHOSPHATASE 43 U/L (45-117); ALT/SGPT 17 U/L (12-78); ANION GAP 9 MEQ/L (8-16); AST/SGOT 12 U/L (7-37); BILIRUBIN,TOTAL 0.3 MG/DL (0.2-1.0); BLOOD UREA NITROGEN 16 MG/DL (7-18); CALCIUM LEVEL 8.1 MG/DL (8.5-10.1); CARBON DIOXIDE LEVEL 24 MEQ/L (21-32); CHLORIDE LEVEL 108 MEQ/L (98-107); CREATININE FOR GFR 0.62 MG/DL (0.55-1.30); GLOMERULAR FILTRATION RATE > 60.0 (>60); GLUCOSE, FASTING 72 MG/DL (70-100); LIPASE 470 U/L (73-393); POTASSIUM SERUM 3.6 MEQ/L (3.5-5.1); SODIUM LEVEL 141 MEQ/L (136-145); TOTAL PROTEIN 6.4 GM/DL (6.4-8.2)
[2018-03-24 20:43] LABS: MEAN CORPUSCULAR HGB CONC 36.7 g/dl (32.0-36.5)
== END 2018-03-24 22:21 | disposition home or self-care (01) ==
LOC: M ED 18:00
DX: O26.892 Other specified pregnancy related conditions, second trimester (principal); N94.89 Other specified conditions associated with female genital organs and menstrual cycle; Z3A.16 16 weeks gestation of pregnancy
CPT/HCPCS: 83690

== ENCOUNTER → 2018-04-15 | Outpatient (CLI) | payer OTHER | LOC: M RAD 15:44 | DX: Z34.82 Encounter for supervision of other normal pregnancy, second trimester (principal); Z36.89 Encounter for other specified antenatal screening; Z3A.20 20 weeks gestation of pregnancy | CPT/HCPCS: 76811 ==

== ENCOUNTER → 2018-05-21 | Outpatient (CLI) | payer OTHER ==
[2018-05-21 19:32] LABS: BASO % 0.1 % (0.0-1.0); EOS % 0.1 % (0.0-3.0); HEMATOCRIT 28.6 % (36.0-47.0); HEMOGLOBIN 10.4 g/dl (12.0-15.5); IMMATURE GRANULOCYTE % 0.4 % (0-3.0); LYMPH # 1.9 10^3/uL (1.5-4.5); LYMPH % 23.3 % (24.0-44.0); MEAN CORPUSCULAR HEMOGLOBIN 28.7 pg (27.0-33.0); MEAN CORPUSCULAR HGB CONC 36.4 g/dl (32.0-36.5); MEAN CORPUSCULAR VOLUME 78.8 fl (80.0-96.0); MONO # 0.5 10^3/uL (0.0-0.8); MONO % 6.3 % (0.0-5.0); NEUTROPHILS # 5.6 10^3/uL (1.8-7.7); NEUTROPHILS % 69.8 % (36.0-66.0); PLATELET COUNT, AUTOMATED 273 10^3/uL (150-450); RED BLOOD COUNT 3.63 10^6/uL (4.00-5.40); RED CELL DISTRIBUTION WIDTH 14.2 % (11.5-14.5)
[2018-05-21 19:53] LABS: GLUCOSE CHALLENGE TEST 1 HOUR 69 MG/DL (LESS THAN 140)
== END ==
LOC: M WUC 15:18
DX: Z34.82 Encounter for supervision of other normal pregnancy, second trimester (principal)